=== PATIENT | female | born 1945 | race Caucasian/White ===

== ENCOUNTER → 2023-11-15 | Emergency (ER) | payer BC ==
[~2023-11-15] MED LIST: DIPHENHYDRAMINE 50 MG/ML VIAL ONE; FAMOTIDINE 20 MG/2 ML VIAL IV ONE; METHYLPREDNISOLONE 125 MG INJ ONE; NA CHLORIDE 0.9% 1,000 ML ONE
--- NOTE | 2023-11-15 20:15 | EDPHYS ---
Physician Documentation [facility] Name: María Cuadra Age: 77 yrs Sex: Female : 1945 Arrival Date: 11/15/2023 Time: 17:41 Bed 20 Private MD: ED Physician Hakeem Haskins HPI: 11/15 18:22 This 77 yrs old Female presents to ER via Ambulatory with complaints of Allergic sb4 Reaction. 18:22 Patient states that she had a chest CT with contrast this morning to evaluate her new sb4 diagnosis of lung cancer. She premedicated yesterday with 3 doses of prednisone and Benadryl. She has taken Benadryl twice today as well but states that this evening her face was very flushed and she feels like her neck is swollen. She denies any shortness of breath, wheezing, chest tightness, throat tightness. Historical: - Allergies: 17:57 Sulfa (Sulfonamide Antibiotics); iw 17:57 Codeine; iw 17:57 Aspirin; iw 17:57 SHELLFISH; iw - PMHx: 17:57 Anxiety; Barretts Disease; Gastroesophageal reflux disease; hiatal hernia; iw Hypercholesterolemia; - Immunization history:: Adult Immunizations up to date. - Social history:: Smoking status: Patient/guardian denies using tobacco, but has a distant history of tobacco abuse. ROS: 18:22 Constitutional: Negative for fever, chills, and weight loss, sb4 18:22 Neck: Positive for swelling, 18:22 Skin: Positive for rash, 18:22 All other systems are negative, Exam: 18:22 Constitutional: This is a well developed, well nourished patient who is awake, alert, sb4 and in no acute distress. Head/Face: Normocephalic, atraumatic. Eyes: Extra-ocular motions intact. Periorbital areas with no swelling, redness, or edema. ENT: Mucous membranes moist. Cardiovascular: Regular rate and rhythm with a normal S1 and S2. Respiratory: Lungs have equal breath sounds bilaterally, clear to auscultation and percussion. No rales, rhonchi or wheezes noted. No increased work of breathing, no retractions or nasal flaring. Abdomen/GI: Soft, non-tender, no distension. MS/ Extremity: Pulses equal, no cyanosis. Neurovascular intact. Full, normal range of motion. Neuro: Awake and alert, GCS 15, oriented to person, place, time, and situation. Motor strength 5/5 in all extremities. Sensory grossly intact. 18:22 Neck: External neck: swelling, that is mild, of the right sternocleidomastoid and left sternocleidomastoid, 18:22 Skin: rash a mild rash is noted, rash can be described as urticarial, on the face, Vital Signs: 17:55 BP 160 / 81; Pulse 93; Resp 16; Temp 98.4; Pulse Ox 98% on R/A; Weight 52.16 kg; iw 20:42 BP 145 / 85; Pulse 84; Resp 18; Pulse Ox 100% on R/A; mb9 MDM: 18:03 Patient medically screened. sb4 18:24 Differential diagnosis: anaphylaxis, angioedema, Mastocystosis non IgE mediated drug sb4 reaction Status Asthmaticus urticaria. 21:33 Data reviewed: vital signs, nurses notes, and as a result, I will discharge patient. sb4 Counseling: I had a detailed discussion with the patient and/or guardian regarding the historical points, exam findings, and any diagnostic results supporting the discharge/admit diagnosis, to return to the emergency department if symptoms worsen or persist or if there are any questions or concerns that arise at home. 11/15 18:12 Order name: IV Start; Complete Time: 18:37 sb4 Administered Medications: 18:50 Drug: Famotidine IVP 20 mg IVP once; dilute with 10 mL 0.9% NaCl; give over 2 minutes me1 Route: IVP; Site: right antecubital; 18:51 Drug: NS 0.9% IV 1000 ml IV at 1 bolus Per protocol; 1000 mL bolus Route: IV; Rate: 1 me1 bolus; Site: right antecubital; 18:51 Drug: MethylPrednisoLONE IVP 125 mg IVP once Route: IVP; Site: right antecubital; me1 18:51 Drug: diphenhydrAMINE IVP 25 mg IVP once Route: IVP; Site: right antecubital; me1 Disposition Summary: 11/15/23 20:14 Discharge Ordered Notes: Location: Home sb4 Problem: new sb4 Symptoms: have improved sb4 Condition: Stable sb4 Diagnosis - allergic reaction to iodinated contrast sb4 Followup: sb4 - With: Emergency Department - When: As needed - Reason: Trouble breathing, Worsening of condition Discharge Instructions: - Discharge Summary Sheet sb4 - Anaphylactic Reaction, Adult, [id number] sb4 Forms: - Thank You Letter sb4 - Patient Portal Instructions sb4 - Leadership Thank You Letter sb4 Prescriptions: - prednisolone 15 mg/5 mL Oral solution - take 10 milliliter ORAL route 2 times per day for 5 days; 100 milliliter; sb4 Refills: 0, Product Selection Permitted Signatures: Lisa Odonnell, RN RN iw Danette Cuadra, PA-C PAJamariC sb4 Annabella Schwarz RN RN me1
--- NOTE | 2023-11-15 20:15 | ER ---
Nurse's Notes [facility] Name: María Cuadra Age: 77 yrs Sex: Female : 1945 Arrival Date: 11/15/2023 Time: 17:41 Bed 20 Private MD: Diagnosis: allergic reaction to iodinated contrast Presentation: 11/15 17:55 Chief complaint: Patient states: had contrast with her CT today at 0745, has been iw taking Benadryl and steroids since last night, now my nose is red and my glands are swollen , has been taking her Benadryl , last dose at 1230. Coronavirus screen: At this time, the client does not indicate any symptoms associated with coronavirus-19. Ebola Screen: Patient negative for fever greater than or equal to 101.5 degrees Fahrenheit, and additional compatible Ebola Virus Disease symptoms Patient denies exposure to infectious person. Patient denies travel to an Ebola-affected area in the 21 days before illness onset. No symptoms or risks identified at this time. Anaphylaxis evaluation, no signs or symptoms of anaphylaxis were noted. Initial Sepsis Screen: Does the patient meet any 2 criteria? No. Patient's initial sepsis screen is negative. Does the patient have a suspected source of infection? No. Patient's initial sepsis screen is negative. Risk Assessment: Do you want to hurt yourself or someone else? Patient reports no desire to harm self or others. Onset of symptoms was November 15, 2023. 17:55 Method Of Arrival: Ambulatory iw 17:55 Acuity: CHRIS 4 iw 18:21 Acuity: CHRIS 3 iw 18:53 Onset: The symptoms/episode began/occurred this morning. me1 Historical: - Allergies: 17:57 Sulfa (Sulfonamide Antibiotics); iw 17:57 Codeine; iw 17:57 Aspirin; iw 17:57 SHELLFISH; iw - PMHx: 17:57 Anxiety; Barretts Disease; Gastroesophageal reflux disease; hiatal hernia; iw Hypercholesterolemia; - Immunization history:: Adult Immunizations up to date. - Social history:: Smoking status: Patient/guardian denies using tobacco, but has a distant history of tobacco abuse. Screenin:53 [facility] ED Fall Risk Assessment (Adult) History of falling in the last 3 months, me1 including since admission No falls in past 3 months (0 pts) Confusion or Disorientation No (0 pts) Intoxicated or Sedated No (0 pts) Impaired Gait No (0 pts) Mobility Assist Device Used No (0 pt) Altered Elimination No (0 pt) Score/Fall Risk Level 0 - 2 = Low Risk Oriented to surroundings, Provided non-skid footwear, Hourly rounding (assess needs \T\ fall precautionary measures) done. Abuse screen: Denies threats or abuse. Nutritional screening: No deficits noted. Tuberculosis screening: No symptoms or risk factors identified. Assessment: 18:53 General: Appears uncomfortable, well groomed, well developed, well nourished, Behavior me1 is calm, cooperative, appropriate for age, Reports had contrast with her CT today at 0745, has been taking Benadryl and steroids since last night, now my nose is red and my glands in her throat are swollen , has been taking her Benadryl , last dose at 1230. Pain: Denies pain. Neuro: Level of Consciousness is awake, alert, obeys commands, Oriented to person, place, time, situation, Appropriate for age. Cardiovascular: Capillary refill < 3 seconds Patient's skin is warm and dry. Respiratory: Airway is patent Trachea midline Respiratory effort is even, unlabored, Respiratory pattern is regular, symmetrical, Breath sounds are clear bilaterally. EENT: Reports had contrast with her CT today at 0745, has been taking Benadryl and steroids since last night, now my nose is red and my glands are swollen- patient noted to frequently clear her throat. No SOB noted. . 20:43 Reassessment: Patient and/or family updated on plan of care and expected duration. Pain mb9 level reassessed. Patient is alert, oriented x 3, equal unlabored respirations, skin warm/dry/pink. Patient states feeling better. Patient states symptoms have improved. Vital Signs: 17:55 BP 160 / 81; Pulse 93; Resp 16; Temp 98.4; Pulse Ox 98% on R/A; Weight 52.16 kg; iw 20:42 BP 145 / 85; Pulse 84; Resp 18; Pulse Ox 100% on R/A; mb9 ED Course: 17:43 Patient arrived in ED. im 17:46 Danette Cuadra PA-C is PHCP. sb4 17:46 Hakeem Haskins MD is Attending Physician. sb4 17:57 Triage completed. iw 17:58 Arm band placed on. iw 18:32 Annabella Schwarz, RN is Primary Nurse. me1 18:37 Inserted saline lock: 22 gauge in right antecubital area, using aseptic technique. me1 18:53 Patient has correct armband on for positive identification. Bed in low position. Call me1 light in reach. Side rails up X2. Provided Education on: POC. Verbalized understanding. . 18:53 No provider procedures requiring assistance completed. me1 20:43 IV discontinued, intact, bleeding controlled, No redness/swelling at site. Pressure mb9 dressing applied. Administered Medications: 18:50 Drug: Famotidine IVP 20 mg IVP once; dilute with 10 mL 0.9% NaCl; give over 2 minutes me1 Route: IVP; Site: right antecubital; 18:51 Drug: NS 0.9% IV 1000 ml IV at 1 bolus Per protocol; 1000 mL bolus Route: IV; Rate: 1 me1 bolus; Site: right antecubital; 18:51 Drug: MethylPrednisoLONE IVP 125 mg IVP once Route: IVP; Site: right antecubital; me1 18:51 Drug: diphenhydrAMINE IVP 25 mg IVP once Route: IVP; Site: right antecubital; me1 Medication: 18:53 VIS not applicable for this client. me1 Outcome: 20:14 Discharge ordered by MD. sb4 20:43 Discharged to home ambulatory, mb9 20:43 Condition: stable 20:43 Discharge instructions given to patient, Instructed on discharge instructions, follow up and referral plans. Demonstrated understanding of instructions, follow-up care, medications, Prescriptions given X 1, 20:43 Patient left the ED. mb9 Signatures: Lisa Odonnell, RN RN Danette Cuadra, PA-C PA-C [email or web address] Juli Vega RN RN mb9 Mattie Farley Michelle, RN RN me1 Corrections: (The following items were deleted from the chart) 18:53 17:55 Chief complaint: Patient states: had contrast with her CT today at 0745, has been me1 taking Benadryl and steroids since last night, now my nose is red and my glands are swollen , has been taking her Benadryl , last dose at 1230 iw
[2023-11-15 20:51] VITALS: BP 145/85; TEMP 98.4; O2SAT 100
== END ==
LOC: ER 17:41
DX: L50.9 Urticaria, unspecified (principal); R22.1 Localized swelling, mass and lump, neck; Z91.041 Radiographic dye allergy status; Z88.2 Allergy status to sulfonamides; Z88.5 Allergy status to narcotic agent; Z88.6 Allergy status to analgesic agent; Z91.013 Allergy to seafood
CPT/HCPCS: 96374; 96375; 99284; J1200; J2930; J7030

== ENCOUNTER → 2023-12-06 | Emergency (ER) | payer BC ==
[2023-12-06 10:59] LABS: Absolute Basophils 0.1 K/uL (0-0.5); Absolute Lymphocytes (CBC) 1.4 K/uL (0.7-4.9); Basophils % 1.5 % (0-1.3); Hematocrit 39.4 % (36.0-45.0); Lymphocytes % 18.8 % (15.3-44.8); MCV 88.5 fL (80-100); MPV 7.9 fL (7.6-11.3); Platelets 333 thou/uL (152-406); RBC Red Blood Cell Count 4.45 M/uL (3.86-4.86)
[2023-12-06 11:21] LABS: Anion Gap 8.7 mEq/L (5.0-15.0); Potassium 3.7 mEq/L (3.5-5.1); Troponin High Sensitivity 7.3 pg/mL (<58.9)
--- NOTE | 2023-12-06 11:49 | RAD REPORT ---
EXAM DESCRIPTION: RAD - Chest Pa And Lat (2 Views) - 12/06/2023 11:41 am CLINICAL HISTORY: fatigue, cough, lung mass Chest pain. COMPARISON: Chest Single View dated 11/11/2023; Thorax W/Wo Con dated 11/15/2023 FINDINGS: Large left upper lobe mass is again noted measuring 7-8 cm. Small to moderate left pleural effusion is noted the right is emphysematous but clear. The heart is normal in size. No displaced fr actures.
--- NOTE | 2023-12-06 12:34 | ER ---
Nurse's Notes [facility] Name: María Cuadra Age: 77 yrs Sex: Female : 1945 Arrival Date: 12/06/2023 Time: 10:29 Bed 14 Private MD: Daniel Fox Diagnosis: Other fatigue;Lung mass;Essential (primary) hypertension Presentation: 12/05 10:35 Chief complaint: Patient states: "I just don't feel good, I feel very weak, I had a aa5 lung biopsy on Saturday". Pt states "I've lost a lot of weight". Pt denies nausea/denies vomiting. 10:35 Method Of Arrival: Ambulatory aa5 10:35 Coronavirus screen: At this time, the client does not indicate any symptoms associated aa5 with coronavirus-19. Ebola Screen: Patient denies travel to an Ebola-affected area in the 21 days before illness onset. Initial Sepsis Screen: Does the patient meet any 2 criteria? No. Patient's initial sepsis screen is negative. Does the patient have a suspected source of infection? No. Patient's initial sepsis screen is negative. Risk Assessment: Do you want to hurt yourself or someone else? Patient reports no desire to harm self or others. Onset of symptoms was December 06, 2023. 10:35 Acuity: CHRIS 3 aa5 Historical: - Allergies: 10:39 Aspirin; aa5 10:39 Codeine; aa5 10:39 SHELLFISH; aa5 10:39 Sulfa (Sulfonamide Antibiotics); aa5 10:48 Yellow Dye; aa5 10:48 alcohol; aa5 10:48 IV contrast; aa5 - PMHx: 10:39 Anxiety; Barretts Disease; Gastroesophageal reflux disease; hiatal hernia; aa5 Hypercholesterolemia; 10:41 Lung mass; aa5 - PSHx: 10:44 hysterectomy; Cholecystectomy; Breast biopsy; aa5 Vital Signs: 10:35 BP 158 / 88; Pulse 91; Resp 16 S; Temp 98(TE); Pulse Ox 100% on R/A; Weight 52.16 kg aa5 (R); Height 5 ft. 1 in. (R); 10:35 Body Mass Index 21.73 (52.16 kg, 154.94 cm) aa5 ED Course: 10:34 Patient arrived in ED. rg4 10:34 Fox, Daniel, DO is Private Physician. rg4 10:38 Arm band placed on. aa5 10:40 Mathew Yost DO is Attending Physician. ms3 10:40 Triage completed. aa5 10:50 Initial lab(s) drawn, by me, sent to lab. Inserted saline lock: 20 gauge in right aa5 antecubital area, using aseptic technique. Blood collected. 10:55 EKG done, by ED staff, reviewed by Mathew Yost DO. aa5 11:43 Chest Pa And Lat (2 Views) XRAY In Process Unspecified. EDMS 12:32 Daniel Fox DO is Referral Physician. ms3 12:46 Hannah Avalos, RN is Primary Nurse. kc6 Administered Medications: No medications were administered Outcome: 12:33 Discharge ordered by . ms3 12:46 Patient left the ED. kc6 Signatures: Dispatcher [employer] EDMS Sandra Cronin, RN RN aa5 Chiara Petersen rg4 Mathew Yost DO DO ms3 Hannah Avalos, RN RN kc6
--- NOTE | 2023-12-06 12:34 | EDPHYS ---
Physician Documentation [facility] Name: María Cuadra Age: 77 yrs Sex: Female : 1945 Arrival Date: 12/06/2023 Time: 10:29 Bed 14 Private MD: [facility] ED Physician Mathew Yost HPI: 12/05 11:00 This 77 yrs old Female presents to ER via Ambulatory with complaints of Doesn't Feel ms3 Right. 11:00 77-year-old female with past medical history of anxiety, Wolfe's, GERD, hiatal ms3 hernia, hyperlipidemia presents to the emergency department for fatigue that has been ongoing for 3 to 4 days. Patient notes she had a lung biopsy performed on Saturday for a lung mass. Patient denies nausea, vomiting, fevers, chills, shortness of breath. Historical: - Allergies: 10:39 Aspirin; aa5 10:39 Codeine; aa5 10:39 SHELLFISH; aa5 10:39 Sulfa (Sulfonamide Antibiotics); aa5 10:48 Yellow Dye; aa5 10:48 alcohol; aa5 10:48 IV contrast; aa5 - PMHx: 10:39 Anxiety; Barretts Disease; Gastroesophageal reflux disease; hiatal hernia; aa5 Hypercholesterolemia; 10:41 Lung mass; aa5 - PSHx: 10:44 hysterectomy; Cholecystectomy; Breast biopsy; aa5 ROS: 11:00 Eyes: Negative for injury, pain, redness, and discharge, Neck: Negative for injury, ms3 pain, and swelling, Cardiovascular: Negative for chest pain, and palpitations. Respiratory: Negative for shortness of breath, cough, wheezing, and pleuritic chest pain, Abdomen/GI: Negative for abdominal pain, nausea, vomiting, diarrhea, and constipation, MS/Extremity: Negative for injury and deformity, Skin: Negative for injury, rash, and discoloration, 11:00 Constitutional: Positive for fatigue, Exam: 11:00 Constitutional: This is a well developed, well nourished patient who is awake, alert, ms3 and in no acute distress. Head/Face: Normocephalic, atraumatic. Neck: Trachea midline, no cervical lymphadenopathy. Supple, full range of motion without nuchal rigidity, or vertebral point tenderness. No Meningismus. Chest/axilla: Normal chest wall appearance and motion. Nontender with no deformity. Cardiovascular: Regular rate and rhythm with a normal S1 and S2. No gallops, murmurs, or rubs. Normal PMI, no JVD. No pulse deficits. Respiratory: Lungs have equal breath sounds bilaterally, clear to auscultation and percussion. No rales, rhonchi or wheezes noted. No increased work of breathing, no retractions or nasal flaring. Abdomen/GI: Soft, non-tender, with normal bowel sounds. No distension or tympany. No guarding or rebound. No evidence of tenderness throughout. Skin: Warm, dry with normal turgor. Normal color with no rashes, no lesions, and no evidence of cellulitis. MS/ Extremity: Pulses equal, no cyanosis. Neurovascular intact. Full, normal range of motion. 11:01 ECG was reviewed by the Attending Physician. ms3 Vital Signs: 10:35 BP 158 / 88; Pulse 91; Resp 16 S; Temp 98(TE); Pulse Ox 100% on R/A; Weight 52.16 kg aa5 (R); Height 5 ft. 1 in. (R); 10:35 Body Mass Index 21.73 (52.16 kg, 154.94 cm) aa5 MDM: 10:46 Patient medically screened. ms3 11:00 Differential Diagnosis Electrolyte abnormality versus anemia versus SD. ms3 12:36 Data reviewed: vital signs, nurses notes, lab test result(s), EKG, radiologic studies, ms3 and as a result, I will discharge patient. Independent interpretation of the following test(s) in the Emergency Department EKG: See my EKG interpretation above. Care significantly affected by the following chronic conditions: anxiety, barretts disease, HLD. Counseling: I had a detailed discussion with the patient and/or guardian regarding the historical points, exam findings, and any diagnostic results supporting the discharge/admit diagnosis, lab results, radiology results, the need for outpatient follow up, to return to the emergency department if symptoms worsen or persist or if there are any questions or concerns that arise at home. ED course: Discussed labs, EKG, imaging with patient. Patient to follow-up with primary care physician in 2 to 3 days. Patient understands and agrees with plan. Questions were answered. Return precautions discussed include worsening symptoms, or any other concerns.. 12/05 10:47 Order name: Basic Metabolic Panel; Complete Time: 12:07 ms3 12/05 10:47 Order name: CBC with Diff; Complete Time: 12:07 ms3 12/05 10:47 Order name: Troponin HS; Complete Time: 12:07 ms3 12/05 10:47 Order name: Chest Pa And Lat (2 Views) XRAY; Complete Time: 12:07 ms3 12/05 10:47 Order name: EKG; Complete Time: 10:48 ms3 12/05 10:47 Order name: Cardiac monitoring; Complete Time: 12:21 ms3 12/05 10:47 Order name: EKG - Nurse/Tech; Complete Time: 10:54 ms3 12/05 10:47 Order name: IV Saline Lock; Complete Time: 10:54 ms3 12/05 10:47 Order name: Labs collected and sent; Complete Time: 10:54 ms3 12/05 10:47 Order name: O2 Per Protocol; Complete Time: 10:54 ms3 12/05 10:47 Order name: O2 Sat Monitoring; Complete Time: 10:54 ms3 EC:01 Rate is 88 beats/min. Rhythm is regular. QRS [place] is Normal. [place] interval is normal. QRS ms3 interval is normal. Clinical impression: Normal ECG. Interpreted by me. Reviewed by me. Administered Medications: No medications were administered Disposition Summary: 12/06/23 12:33 Discharge Ordered Notes: Location: Home ms3 Condition: Stable ms3 Diagnosis - Other fatigue ms3 - Lung mass ms3 - Essential (primary) hypertension ms3 Followup: ms3 - With: Daniel Fox DO - When: 2 - 3 days - Reason: Recheck today's complaints Discharge Instructions: - Discharge Summary Sheet ms3 - Hypertension, Adult ms3 - Fatigue ms3 - DASH Eating Plan ms3 Forms: - Medication Reconciliation Form ms3 - Thank You Letter ms3 - Antibiotic Education ms3 - Prescription Opioid Use ms3 - Patient Portal Instructions ms3 - Leadership Thank You Letter ms3 Signatures: Dispatcher [employer] Sandra Lamar, RN RN aa5 Mathew Yost DO DO ms3
[2023-12-06 13:11] VITALS: BP 158/88; TEMP 98; O2SAT 100
== END ==
LOC: ER 10:29
DX: R53.83 Other fatigue (principal); R91.8 Other nonspecific abnormal finding of lung field; I10 Essential (primary) hypertension; Z88.2 Allergy status to sulfonamides; Z88.5 Allergy status to narcotic agent; Z88.6 Allergy status to analgesic agent; Z88.8 Allergy status to other drugs, medicaments and biological substances; Z91.013 Allergy to seafood; Z91.018 Allergy to other foods; Z91.041 Radiographic dye allergy status
CPT/HCPCS: 36415; 71046; 80048; 84484; 85025; 99283